=== PATIENT | female | born 1955 | race African-American/Black ===

== ENCOUNTER 2018-11-01 08:27 | Emergency (ER) | payer SELFPAY ==
--- NOTE | 2018-11-01 08:46 | ER Document Report ---
ED General - General Chief Complaint: Back Pain Stated Complaint: BACK PAIN Time Seen by Provider: 11/01/18 08:45 Mode of Arrival: Ambulatory TRAVEL OUTSIDE OF THE [place] IN LAST 30 DAYS: No - HPI Notes: 63-year-old female presents to the ED for evaluation of right-sided muscular pain after she was mowing the lawn approximately 4 days ago with a push mower. States she bent down on and when she got up she felt a pull of her muscle on the right. Denies any trauma, falling or recent injury. Did try Tylenol with some relief. Has not applied any heat or ice to area. Denies any other area of pain or radiation of pain. Eating and drinking without issues. Denies fevers, chills, chest pain,palpitations, shortness of breath, dyspnea, nausea, vomiting, diarrhea, abdominal pain, hematuria,blurred vision, double vision, loss of vision, speech changes, LH, dizziness, syncope, headaches, wheezing, ST, URI, neck pain, weakness, bowel or bladder dysfunction, saddle anesthesia, numbness or tingling in bilateral upper or lower extremities equally, muscle paralysis, weakness in bilateral upper or lower extremities equally or rash. - Related Data Allergies/Adverse Reactions: No Known Allergies Allergy (Verified 11/01/18 08:28) Past Medical History - General Information source: Patient - Social History Smoking Status: Unknown if Ever Smoked Family History: Reviewed & Not Pertinent Renal/ Medical History: Reports: Hx Kidney Stones Past Surgical History: Reports: Hx Appendectomy, Hx Section, Hx Cholecystectomy, Hx Kidney (Renal Surgery) - Immunizations Immunizations up to date: Yes Hx Diphtheria, Pertussis, Tetanus Vaccination: Yes Hx Pneumococcal Vaccination: 08/02/00 Review of Systems - Review of Systems Constitutional: No symptoms reported EENT: No symptoms reported Cardiovascular: No symptoms reported Respiratory: No symptoms reported Gastrointestinal: No symptoms reported Genitourinary: No symptoms reported Female Genitourinary: No symptoms reported Musculoskeletal: See HPI Skin: No symptoms reported Hematologic/Lymphatic: No symptoms reported Neurological/Psychological: No symptoms reported Physical Exam - Vital signs Vitals: Temp Pulse Resp BP Pulse Ox 97.8 F 67 16 176/84 H 96 11/01/18 08:30 11/01/18 08:30 11/01/18 08:30 11/01/18 08:30 11/01/18 08:30 - Notes Notes: PHYSICAL EXAMINATION: GENERAL: Well-appearing, well-nourished and in no acute distress. HEAD: Atraumatic, normocephalic. EYES: Pupils equal round and reactive to light, extraocular movements intact, conjunctiva are normal. ENT: Nares patent, oropharynx clear without exudates. Moist mucous membranes. NECK: Normal range of motion, supple without lymphadenopathy LUNGS: Breath sounds clear to auscultation bilaterally and equal. No wheezes rales or rhonchi. HEART: Regular rate and rhythm without murmurs ABDOMEN: Soft, nontender, nondistended abdomen. No guarding, no rebound. No masses appreciated. Female : deferred Musculoskeletal: Normal range of motion, no pitting or edema. No cyanosis. Palpable muscle point tenderness to right paraspinal/scapular area, patient states this is the area that is causing her pain and the pain that brought her to the emergency room. No step-off noted, no ecchymosis, abrasion, induration to area. Pain with flexion extension, rotation of hips, shoulders with full range of motion with abduction abduction flexion and extension. 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 Strength 5 out of 5 in bilateral upper extremities equally. normal hip rotation. DTR +2 in BLE equally. Strength 5 out of 5 both distally and proximally to bilateral lower extremities normal motor and sensory function in BLE equally. Distal pulses + 2 BLE equally. No cervical, thoracic or lumbar spinal tenderness. No CVA tenderness bilaterally. Femoral pulses + 2 bilaterally and equally. No abrasions, scars, lacerations, ecchymosis of any recent trauma. normal gait. NEUROLOGICAL: Cranial nerves grossly intact. Normal speech, normal gait. Normal sensory, motor exams PSYCH: Normal mood, normal affect. SKIN: Warm, Dry, normal turgor, no rashes or lesions noted. 22-like and then on the other half of a flight Course - Re-evaluation Re-evalutation: 11/01/18 09:43 61-year-old female afebrile slightly hypertensive however he recheck manual blood pressure, blood pressure was 160s over 70s, presents for right mid scapular back pain after mowing approximately 4 days ago. Denies any trauma. Able to palpate muscle spasm on clinical examination, no focal neurological deficits. Discussed with patient to apply warm compresses to area 20 minutes on 20 minutes off, use muscle relaxers as needed, alternate between ibuprofen and Tylenol, stretching exercises. Advised to also limit sodium intake due to elevated blood pressure, patient states she does not have any blood pressure issues, thinks this might be elevated today due to some pain issues. Work note has been given. After performing a Medical Screening Examination, I estimate there is LOW risk for OPEN FRACTURE, COMPARTMENT SYNDROME, DEEP VENOUS THROMBOSIS, ACUTE TENDON RUPTURE, or NEUROVASCULAR INJURY thus I consider the discharge disposition reasonable. I have reevaluated this patient multiple times and no significant life threatening changes are noted. The patient and I have discussed the diagnosis and risks, and we agree with discharging home to closely follow-up with their primary doctor or the referral orthopedist with the understanding that symptoms and presentations can change. We also discussed returning to the Emergency Department immediately if new or worsening symptoms occur. We have discussed the symptoms which are most concerning (e.g., changing or worsening pain, numbness, weakness) that necessitate immediate return - Vital Signs Vital signs: Temp Pulse Resp BP Pulse Ox 97.8 F 67 16 176/84 H 96 11/01/18 08:30 11/01/18 08:30 11/01/18 08:30 11/01/18 08:30 11/01/18 08:30 Discharge - Discharge Clinical Impression: Muscle spasm Hypertension Qualifiers: Hypertension type: unspecified Qualified Code(s): I10 - Essential (primary) hypertension Condition: Stable Disposition: HOME, SELF-CARE Instructions: Muscle Strain ([facility]), Warm Packs ([facility]), Muscle Relaxers ([facility]), High Blood Pressure ([facility]) Additional Instructions: Muscle Strain You have strained a muscle -- torn the fibers within the muscle. This often occurs with strenuous exertion, or during an injury that suddenly stretches the muscle. The seriousness of a strain varies. Some strains heal within days, others cause problems for months. X-rays cannot show a muscle strain. X-rays are taken only if symptoms quiroz ggest that a fracture could be present. The usual treatment of a muscle strain is rest and ice packs. Sometimes, a sling, splint, or crutches may be necessary to rest the muscle. The muscle can be used again once pain subsides. Severe strains require a special exercise and stretching program to prevent permanent stiffness and disability. Your doctor will advise you if this will be necessary. Call the doctor immediately if pain or swelling becomes severe, or if numbness or discoloration develop. Muscle Relaxers Muscle relaxing medications are usually prescribed for acute muscle spasm or injury to the neck and back. They are often combined with antiinflammatory pain medication for increased relief. You may stop the muscle relaxer when the pain and stiffness have improved. Start the medication again if spasms recur. Muscle relaxers may cause drowsiness, especially with the first dose. Do not operate machinery or drive while under the effects of the medication. Most muscle relaxers last up to 24 hours. Do not combine the medication with alcohol. By heat 20 minutes on 20 minutes off several times a day. Do not drive, drink or operate heavy machinery while taking muscle relaxers that can cause sedation or cognitive impairment impairment. Follow-up with primary care provider within the next 24 to 48 hours. If symptoms become worse return to the emergency room. you did not have any trauma or did not fall, no diagnostic imaging is required. Return immediately for any new or worsening symptoms. Follow up with primary care provider, call tomorrow to make followup appointment. Prescriptions: Methocarbamol [Robaxin 500 mg Tablet] 500 mg PO TIDP PRN #12 tablet PRN Reason: Forms: Return to Work Referrals: PIERO SHEN MD [ACTIVE STAFF] - Follow up in 3-5 days
--- NOTE | 2018-11-01 09:42 | ER Document Report ---
Doctor's Note Notes: 11/01/18 09:41 I personally and independently obtained patient history and examined the patient and have reviewed the APC's note, reviewed, discussed and agree with their assessment and plan. HISTORY OF PRESENT ILLNESS: Patient is a 63-year-old female that presents to the emergency department for chief complaint of right-sided muscle pain. Patient's pain started after bending over and standing up quickly. ROS: Constitutional: Negative for fever. Cardiovascular: Negative for chest pain. Respiratory: Negative for shortness of breath. Gastrointestinal: Negative for vomiting or abdominal pain Musculoskeletal: Back pain. Negative for arm, leg pain Skin: Negative for rash. Neurological: Negative for weakness or numbness. Unless otherwise stated in this report the patient's positive and negative responses for review of systems for constitutional, eyes, ENT, cardiovascular, respiratory, gastrointestinal, neurological, genitourinary, musculoskeletal, and integumentary systems and related systems to the presenting problem are either as stated in the HPI or were not pertinent or were negative for the symptoms and/or complaints related to the presenting medical problem. PHYSICAL EXAMINATION: Vital signs reviewed, nursing noted reviewed. GENERAL: Well-appearing, well-nourished and in no acute distress. HEAD: Atraumatic, normocephalic. EYES: Eyes appear normal, conjunctiva are normal. ENT: nares patent, oropharynx clear without exudates. Moist mucous membranes. NECK: Normal range of motion, supple without lymphadenopathy LUNGS: Breath sounds clear to auscultation bilaterally and equal. No wheezes rales or rhonchi. HEART: Regular rate and rhythm without murmurs ABDOMEN: Soft, nontender, normoactive bowel sounds. No rebound, guarding, or rigidity. No masses appreciated. EXTREMITIES: Nontender, good range of motion, no pitting or edema. Back: Paraspinal thoracic muscle tenderness along the medial aspect of right scapula, no midline spinal tenderness NEUROLOGICAL: No focal neurological deficits. Moves all extremities spontaneously Motor and sensory grossly intact on exam. PSYCH: Normal mood, normal affect. SKIN: Warm, Dry, normal turgor, no rashes or lesions noted on exposed MEDICAL DECISION MAKING: Patient symptoms consistent with musculoskeletal pain. Agree with discharge home. Please review detail APC documentation. *Note is created using voice recognition software and may contain spelling, syntax or grammatical errors.
[2018-11-01 10:06] VITALS: BP 160/80
== END 2018-11-01 11:06 | disposition home or self-care (01) ==
LOC: ER 08:27
DX: M62.838 Other muscle spasm (principal); I10 Essential (primary) hypertension; M54.9 Dorsalgia, unspecified
CPT/HCPCS: 99283

== ENCOUNTER 2019-01-11 16:29 | Emergency (ER) | payer OTHER ==
[2019-01-11 16:48] VITALS: BP 171/85
[2019-01-11] MEDS ORDERED: IBUPROFEN 800 MG TABLET PO ONE (17:11)
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
== END 2019-01-11 17:27 | disposition home or self-care (01) ==
LOC: ER 16:29
DX: R51 Headache (principal); M79.18 Myalgia, other site; V49.50XA Passenger injured in collision with unspecified motor vehicles in traffic accident, initial encounter
CPT/HCPCS: 99283